=== PATIENT | female | born 1980 | race Caucasian/White ===

== ENCOUNTER 2019-05-25 10:42 | Emergency (ER) | payer OTHER ==
[~2019-05-25] VITALS: Ht 162.6 cm; Wt 66.2 kg
[2019-05-25 10:42] VITALS: BP_SYST 116
[2019-05-25] MEDS ORDERED: LORazepam 1 MG TABLET PO ONE (11:15)
[2019-05-25 12:00] LABS: BASOPHILS # (AUTO) 0.1 K/uL (0.0-0.2); BASOPHILS % (AUTO) 0.8 % (0.0-2.0); EOSINOPHILS # (AUTO) 0.1 K/uL (0.0-0.4); EOSINOPHILS % (AUTO) 1.1 % (0.0-4.0); HEMATOCRIT 46.6 % (36-48); HEMOGLOBIN 15.5 g/dL (12.0-16.0); LYMPHOCYTES % (AUTO) 18.9 % (20.5-51.5); MEAN CORPUSCULAR HEMOGLOBIN 28 pg (27-31); MEAN CORPUSCULAR HGB CONC 33 % (32-36); MEAN CORPUSCULAR VOLUME 85 fL (79.0-98.0); MONOCYTES # (AUTO) 0.9 K/uL (0.0-1.0); MONOCYTES % (AUTO) 8.2 % (1.7-9.3); NEUTROPHILS # (AUTO) 7.6 K/uL (1.8-7.7); PLATELET COUNT (AUTO) 180 K/uL (130-430); RED BLOOD CELL COUNT(AUTO) 5.47 MIL/uL (4.2-6.2); RED CELL DISTRIBUTION WIDTH 17.9 % (9.0-15.0); WHITE BLOOD COUNT (AUTO) 10.7 K/uL (4.8-10.8)
[2019-05-25 12:38] LABS: ANION GAP 8 (5-15); CALCIUM 8.8 mg/dL (8.4-11.0); CHLORIDE 103 mmol/L (98-107); CREATININE 0.75 mg/dL (0.55-1.30); GLUCOSE 96 mg/dL (70-99); POTASSIUM 4.3 mmol/L (3.5-5.1); SODIUM SERUM 138 mmol/L (136-145); UREA NITROGEN, BLOOD 16 mg/dL (8-21)
[2019-05-25 12:40] LABS: GFR AFRICAN AMERICAN 111 mL/min (>90)
[2019-05-25 12:50] LABS: THYROID STIMULATING HORMONE 1.82 uIu/mL (0.36-3.74)
[2019-05-25 12:51] LABS: ALANINE AMINOTRANSFERASE 34 U/L (12-78); ALBUMIN 3.9 g/dL (3.4-4.8); ASPARTATE AMINOTRANSFERASE 20 U/L (10-37); TOTAL BILIRUBIN 0.5 mg/dL (0.0-1.0)
[2019-05-25 13:50] VITALS: BP_SYST 116
== END 2019-05-25 13:50 | disposition home or self-care (01) ==
LOC: SED 10:42
DX: R00.2 Palpitations (principal); F41.9 Anxiety disorder, unspecified; E11.9 Type 2 diabetes mellitus without complications
CPT/HCPCS: 36415; 71046-TC; 80053; 84439; 84443-TC; 84484; 85025; 85379; 93005; 99285